=== PATIENT | female | born 1980 | race Asian ===

== ENCOUNTER 2020-08-11 22:47 | Outpatient (REF) | payer OTHER, SELFPAY ==
[2020-08-11 23:25] LABS: COVID-19 Test Negative (Negative); IDNOW Serial# 9DD0AD1C
== END 2020-08-11 22:48 | disposition home or self-care (01) ==
LOC: HO.EMPCOV 22:47
PROVIDERS: Visit Provider Internal Medicine
DX: Z20.822 Contact with and (suspected) exposure to COVID-19 (principal)
CPT/HCPCS: 36415; 87635

== ENCOUNTER 2025-03-07 13:41 | Outpatient (AMB) | payer OTHER, SELFPAY ==
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
[2025-03-07 13:57] VITALS: BP 108/82; PULSE 87; RESP 15; TEMP 36.6; O2SAT 96; BMI 23.1
== END 2025-03-07 14:45 | disposition home or self-care (01) ==
LOC: HO.HMCFM 13:42
PROVIDERS: PCP Nurse Practitioner Family; Visit Provider Nurse Practitioner Family
DX: Z00.00 Encounter for general adult medical examination without abnormal findings (principal); M89.8X1 Other specified disorders of bone, shoulder; L98.9 Disorder of the skin and subcutaneous tissue, unspecified; J30.2 Other seasonal allergic rhinitis; Z12.31 Encounter for screening mammogram for malignant neoplasm of breast

== ENCOUNTER → 2025-03-07 13:41 | Outpatient (BNVA) | payer OTHER, SELFPAY | PROVIDERS: PCP Nurse Practitioner Family; Visit Provider Nurse Practitioner Family | DX: Z00.00 Encounter for general adult medical examination without abnormal findings (principal); M25.551 Pain in right hip; M89.8X1 Other specified disorders of bone, shoulder; L98.9 Disorder of the skin and subcutaneous tissue, unspecified; H52.10 Myopia, unspecified eye; J30.2 Other seasonal allergic rhinitis; Z23 Encounter for immunization | CPT/HCPCS: 90471; 90715; 96127 ==

== ENCOUNTER 2025-03-08 08:25 | Outpatient (REF) | payer OTHER, SELFPAY ==
--- NOTE | ~2025-03-08 | XR_ITS ---
EXAMINATION: XR SCAPULA RIGHT HISTORY: M89.8X1 - Other specified disorders of bone, shoulder COMPARISON: There are no prior studies available for comparison. FINDINGS: Two views of the right scapula are submitted. Osseous mineralization is normal. There is no fracture or lytic lesion. The glenohumeral joint is maintained. XR/XR scapula RT IMPRESSION: Unremarkable examination of the right scapula. Electronically signed by: Gerard Cody MD 03/08/2025 09:10 AM EDT
[2025-03-08 08:39] LABS: MANUAL DIFF FLAG NO
--- OUTSIDE RECORDS SUMMARY | 2025-03-08 08:43 | XMS_ITS | Clinical Summary ---
Author Organization [address] [facility] Address [address] [place] [id number] Phone Care Team Providers Care Title Department Manager Name Role Phone Kuldeep Jim Primary Care Provider [phone] Encounters Date Type Department Care Team Description 01/01/2025 3:30 PM EDT Clinic Lab Collection Walk[facility]In [facility] - [address] [id number] Pre-employment drug screening (Primary Dx) from Last 3 Months Social History Tobacco Use Types Packs/Day Years Used Date Smoking Tobacco: Never Assessed Comments Unknown Sex and Gender Information Value Date Recorded Sex Assigned at Not on file Legal Sex Female 9:00 PM EST Gender Identity Not on file Sexual Orientation Not on file Plan of Treatment Health Maintenance Due Date Last Done Comments Breast Cancer Screening 1980 DTaP,Tdap,and Td Vaccines (1 - Tdap) 09/30/1998 Hepatitis B Vaccines (1 of 3 - 19+ 3-dose series) 09/30/1998 COVID-19 Vaccine ( season) 2024 05/10/2022, 07/05/2021, 08/09/2020, Additional history exists HPV Vaccines (3 - 3-dose SCDM series) 06/09/2024 01/30/2024, 12/08/2023 Depression Screening 07/28/2024 Colorectal Cancer Screening: Colonoscopy 01/01/2025 HIV Screening 01/01/2025 Hepatitis C Screening 01/01/2025 Social Influencers of Health Screening 01/01/2025 Influenza Vaccine (#1) 2025 , 05/10/2022, 04/27/2019 Cervical Cancer Screening: Pap Smear 12/07/2026 12/08/2023 HIB Vaccines Aged Out No longer eligi ble based on patient's age to complete this topic Hepatitis A Vaccines Aged Out No long er eligible based on patient's age to complete this topic IPV Vaccines Aged Out No longer eligi ble based on patient's age to complete this topic MMR Vaccines Aged Out No longer eligi ble based on patient's age to complete this topic Meningococcal ACWY Vaccine Aged Out N o longer eligible based on patient's age to complete this topic Meningococcal B Vaccine Aged Out No l onger eligible based on patient's age to complete this topic Pneumococcal Vaccine: Pediatrics (0 to 5 Years) and At-Risk Patients (6 to 49 Years) Aged Out No longer eligible based on patient's age to complete this topic RSV Immunization Patients Under 20 months Aged Out No longer eligible based on patient's age to complete this topic Varicella Vaccines Aged Out No longer eligible based on patient's age to complete this topic Procedures Procedure Name Priority Date/Time Associated Diagnosis Comments POC URINE DRUG SCREEN Routine 01/02/2025 4:18 PM EDT Pre-employment drug screening from Last 3 Months Results * POC Urine Drug Screen (01/02/2025 4:18 PM EDT) Amphetamine Screen, Ur POC Negative Negative Benzodiazepines, Ur POC Negative Negative Cocaine, Ur POC Negative Negative Methamphetamine Screen, Ur POC Negative Negative Opiate Scrn, Ur POC Negative Negative THC, Ur POC Negative Negative Temperature, Ur POC 94 Urine Urine specimen obtained by clean catch procedure / Unknown 01/02/2025 4:18 PM EDT Isaías Reyes MD POINT OF CARE TEST ENTER/EDIT OR DERABLES Final Result from Last 3 Months Care Teams Title Department Manager Relationship Specialty Start Date End Date Kuldeep Jim PA [address] [place] [id number] PCP - General Orthopaedics 01/01/25
--- OUTSIDE RECORDS SUMMARY | 2025-03-08 08:43 | XMS_ITS | Referral Summary ---
Author Organization [facility] Address [address] [place] [address] Care Team Providers Care Director Social Welfare Name Role Phone Mike Jara MD Primary Care Provider [phone] Allergies Active Allergy Reactions Criticality Noted Date Comments Shellfish Derived Hives High 12/08/2023 Tree Nuts Hives High 12/08/2023 Medications No known medications Immunizations Immunization Administration Dates Next Due Human Papillomavirus 9-Valent Vaccine 01/30/2024 ,12/08/2023 Social History Tobacco Use Types Packs/Day Years Used Date Smoking Tobacco: Never Smokeless Tobacco: Never Tobacco Cessation:Counseling Given: Not Answered Comments:: Alcohol Use Standard Drinks/Week Comments Not Currently 0 (1 standard drink = 0.6 oz pur e alcohol) Comments No Sex and Gender Information Value Date Recorded Sex Assigned at Female 12/01/2023 9:33 AM EDT Legal Sex Female 8:38 AM EDT Gender Identity Female 12/01/2023 9:33 AM EDT Sexual Orientation Straight 12/01/2023 9: 33 AM EDT Last Filed Vital Signs Vital Sign Reading Time Taken Comments Blood Pressure 96/64 12/08/2023 9:07 AM EDT Pulse - - Temperature - - Respiratory Rate - - Oxygen Saturation - - Inhaled Oxygen Concentration - - Weight 50.8 kg (112 lb) 12/08/2023 9:07 AM EDT Height 144.8 cm (4' 9 ) 04/24/2012 4:18 PM EDT Body Mass Index - - Plan of Treatment Not on file Procedures * Due to [place] O'ol Blue law, this organization might not be sharing negative HIV tests. Procedure Name Priority Date/Time Associated Diagnosis Comments PAP Routine 12/08/2023 10:29 AM EDT Cervical cancer screening from Last 3 Months or Most Recently Relevant to Health Maintenance Results * Due to [place] state law, this organization might not be sharing negative HIV tests. * Pap (12/08/2023 10:29 AM EDT) Specimen Adequacy Specimen processed and examined but unsatisfactory for evaluation of epithelial cell abnormalities because of scant cellularity [facility] MANUAL 4 11:37 AM EDT [facility] [place] [facility] ANATOMIC PATHOLOGY LABORATORY Pathologist Cytology Interpretation Unsatisfactory for Evaluation. Please see Specimen Adequacy. [facility] MANUAL 4 11:37 AM EDT [facility] [place] [facility] PATHOLOGY LABORATORY at 1137 EDT Clearing Tub Worker Statement This Pap test could not be examined by the [employer] System, [employer], [place], [place], and required a full manual screening. This Pap test was examined in accordance with the [facility] Cytopathology Laboratory written policy, which incorporates all CLIA mandates. Screening guidelines can be found in Am J Clin Pathol 2012;137:516-542 . We endorse the practice guidelines developed by ASCCP and published in the Journal Lower Genital Tract Disease 17(5):S1-S27 (2013). This report was delayed because the sample required reprocessing. [facility] MANUAL 4 11:37 AM EDT [facility] [employer] [facility] PATHOLOGY LABORATORY Clinical History Screening [facility] MANUAL 11:37 AM EDT [facility] [place] [facility] ANATOMIC PATHOLOGY LABORATORY Resulting Agency Case was signed out at [facility], Department of Pathology, [employer] 3 CLIA [id number] [facility] MANUAL 4 11:37 AM EDT [facility] [place] [facility] ANATOMIC PATHOLOGY LABORATORY Report Header Gynecologic Cytology Report Case: [id number] Authorizing Provider: Jade Yoder MD Collected: 12/08/2023 1029 Ordering Location: [facility] Received: 12/08/2023 1335 [facility] Obstetrics and Gynecology First Screen: Ugo Lang Specimen: ThinPrep Pap Test, Cervix/Endocervi x 11:37 AM EDT [facility] [place] [facility] PATHOLOGY LABORATORY Brushing Cervix uteri structure / Unknown Non-Blood Collection / Unknown 12/08/2023 10:29 AM EDT 12/08/2023 1:35 PM EDT us Jade Yoder MD LAB PATHOLOGY/CYTOLOGY ORDER DANIEL Final Result [facility] [place] [facility] [address] [place] [address], from Last 3 Months or Most Recently Relevant to Health Maintenance Care Teams Director Social Welfare Relationship Specialty Start Date End Date Mike Jara MD PCP - General 02/13/17
[2025-03-08 09:09] LABS: Hematocrit 35.3 % (37.0-47.0); Hemoglobin 11.8 g/dl (12.0-16.0); Imm Gran Abs Auto 0.02 X10*3/uL (0.00-0.03); Imm Gran Pct Auto 0.3 % (0.0-0.4); Lymphocytes Absolute Auto 1.8 X10*3/uL (1.2-4.9); Mean Corpuscular HGB Conc 33.4 g/dl (31.0-35.0); Mean Corpuscular Hemoglobin 30.6 pg (27.0-33.0); Mean Corpuscular Volume 91.7 fL (80.0-98.0); NRBC Abs Auto 0.000 X10*3/uL (0.0-0.012); NRBC Pct Auto 0.0 /100WBC (0.0-0.2); Platelet Count 258 X10*3/uL (160-400); Red Blood Count 3.85 X10*6/uL (4.20-5.50); White Blood Count 7.0 X10*3/uL (4.8-10.8)
[2025-03-08 09:36] LABS: Appearance Urine Clear; Glucose Urine UA Negative (Negative); PH 6.0 (5.0-9.0); Specific Gravity - Urine 1.015 (1.005-1.025); UMIC TRIGGER UACC YES
[2025-03-08 10:43] LABS: Alanine Aminotransferase 11 U/L (0-31); Albumin Level 4.1 g/dL (3.5-5.0); Alkaline Phosphatase 47 U/L (39-117); Anion Gap 11 (12-20); Aspartate Amino Transferase 22 U/L (5-31); Blood Urea Nitrogen 22 mg/dL (9-16); Calcium 8.4 mg/dL (8.4-10.2); Carbon Dioxide 27 mmol/L (22-29); Chloride 105 mmol/L (96-108); Cholesterol 144 mg/dL (<200); Estimated Glomerular Filt Rate > 60; HDL Cholesterol 54 mg/dL (>40); Potassium 3.8 mmol/L (3.3-5.1); Sodium 139 mmol/L (135-145); Total Protein 6.9 g/dL (6.5-8.0); Triglycerides 86 mg/dL (<150)
== END 2025-03-08 08:26 | disposition home or self-care (01) ==
LOC: HO.LAB 08:25
PROVIDERS: Visit Provider Nurse Practitioner Family
DX: Z00.00 Encounter for general adult medical examination without abnormal findings (principal); M89.8X1 Other specified disorders of bone, shoulder; Z13.6 Encounter for screening for cardiovascular disorders
CPT/HCPCS: 36415; 73010; 80053; 80061; 81001; 82043; 82306; 82570; 84443; 85025

== ENCOUNTER → 2025-03-08 08:45 | Outpatient (BNV) | payer OTHER, SELFPAY | PROVIDERS: Visit Provider Radiology Diagnostic Radiology | DX: M25.511 Pain in right shoulder (principal) | CPT/HCPCS: 73010 ==

== ENCOUNTER 2025-04-29 14:02 | Outpatient (AMB) | payer OTHER, SELFPAY ==
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
--- OUTSIDE RECORDS SUMMARY | 2025-04-29 14:15 | XMS_ITS | Clinical Summary ---
Author Organization [facility] Address [address] [place] [address] Care Team Providers Care Shot Lighter Name Role Phone Mike Jara MD Primary Care Provider [phone] Allergies Active Allergy Reactions Criticality Noted Date Comments Shellfish Derived Hives High 12/08/2023 Tree Nuts Hives High 12/08/2023 Medications No known medications Immunizations Immunization Administration Dates Next Due Human Papillomavirus 9-Valent Vaccine 01/30/2024 ,12/08/2023 Family History Medical History Relation Name Comments Breast cancer Mother's Sister Liver cancer Paternal Grandfather Relation Name Status Comments Mother's Sister Alive Paternal Grandfather Social History Tobacco Use Types Packs/Day Years [...] Mass Index - - Plan of Treatment Health Maintenance Due Date Last Done Comments Cologuard 1979 Colon Cancer Screening 1979 Colonoscopy 1979 FOBT / Fit Test 1979 HIV Screening 1979 HPV and Pap Smear 1979 Hepatitis C Screening 1979 Sigmoidoscopy 1979 Varicella Vaccines (1 of 2 - 13+ 2-dose series) 09/30/1992 Hepatitis B Vaccines (1 of 3 - 19+ 3-dose series) 09/30/1998 DTaP,Tdap,and Td Vaccines (1 - Tdap) 09/30/2001 Mammogram 2019 Alcohol/Substance Use Screening 07/28/2024 Depression Screening and Follow-Up 07/28/2024 Social Drivers of Health Annual Screening 07/28/2024 COVID-19 Vaccine (2024- season) 2025 05/10/2022, 07/05/2021, 08/09/2020, Additional history exists Influenza Vaccine (#1) 2025 3, 05/10/2022, 04/27/2019 Cervical Cancer Screening 12/07/2026 Pap Smear 12/07/2026 12/08/2023 RSV Vaccine (60+ years old and patients) (1 - 1-dose 75+ series) 09/30/2054 Pneumococcal Vaccine: Pediatric (0-5 Years) and At-Risk Patients (6-50 Years) Aged Out No longer eligible based on patient's age to complete this topic Procedures * Due to [place] panpan law, this organization might not be sharing negative HIV tests. Procedure Name Priority Date/Time Associated Diagnosis Comments PAP Routine 12/08/2023 10:29 AM EDT Cervical cancer screening from Last 3 Months or Most Recently Relevant to Health Maintenance Results * Due to [place] panpan law, this organization might not be sharing negative HIV tests. * Pap (12/08/2023 10:29 AM EDT) Specimen Adequacy Specimen processed and examined but unsatisfactory for evaluation of epithelial cell abnormalities because of scant cellularity [employer] MANUAL 4 11:37 AM EDT Room [facility] Pathologist Cytology Interpretation Unsatisfactory for Evaluation. Please see Specimen Adequacy. [facility] MANUAL 4 11:37 AM EDT Room [facility] at 1137 EDT Service Car Operator Statement This Pap test could not be examined by the [employer] System, [employer], [place], [place], and required a full manual screening. This Pap test was examined in accordance with the [facility] Cytopathology Laboratory written policy, which incorporates all CLIA mandates. Screening guidelines can be found in Am J Clin Pathol 2012;137:516-542 . We endorse the practice guidelines developed by ASCCP and published in the Journal Lower Genital Tract Disease 17(5):S1-S27 (2013). This report was delayed because the sample required reprocessing. [facility] MANUAL 4 11:37 AM EDT [facility] LABORAT[facility] Clinical History Screening [facility] MANUAL 4 11:37 AM EDT Room [facility] ANATOMIC PATHOLOGY LABORATORY Resulting Agency Case was signed out at [facility], Department of Pathology, [employer] 3 CLIA [id number] [facility] MANUAL 4 11:37 AM EDT [facility] Report Header Gynecologic Cytology Report Case: [id number] Authorizing Provider: Jade Yoder MD Collected: 12/08/2023 1029 Ordering Location: [facility] Received: 12/08/[address] [place] [address] Obstetrics and Gynecology First Screen: Ugo Lang Specimen: ThinPrep Pap Test, Cervix/Endocervi x 11:37 AM EDT [facility] Brushing Cervix uteri structure / Unknown Non-Blood Collection / Unknown 12/08/2023 10:29 AM EDT 12/08/2023 1:35 PM EDT us Jade Yoder MD LAB PATHOLOGY/CYTOLOGY ORDER DANIEL Final Result [facility] [address] [place] [address], from Last 3 Months or Most Recently Relevant to Health Maintenance Care Teams Shot Lighter Relationship Specialty Start Date End Date Mike Jara MD [facility] - General 02/13/17
--- OUTSIDE RECORDS SUMMARY | 2025-04-29 14:15 | XMS_ITS | Clinical Summary ---
Author Organization [place] [address] [address] [facility] Address [address] [place] [phone] Phone Care Team Providers Care Home Paraprofessional Name Role Phone Kuldeep Jim Primary Care Provider [phone] Social History Tobacco Use Types Packs/Day Years [...] of 3 - 19+ 3-dose series) 09/30/1998 HPV Vaccines (3 - 3-dose SCDM series) 06/09/2024 01/30/2024, 12/08/2023 Depression Screening 07/28/2024 Colorectal Cancer Screening: Colonoscopy 01/01/2025 HIV Screening 01/01/2025 Hepatitis C Screening 01/01/2025 Social Influencers of Health Screening 01/01/2025 COVID-19 Vaccine ( season) 2025 05/10/2022, 07/05/2021, 08/09/2020, Additional history exists Influenza Vaccine (#1) 2025 , 05/10/2022, 04/27/2019 Cervical Cancer Screening: Pap Smear 12/07/2026 12/08/2023 RSV Immunization Adult Patients (1 - 1-dose 75+ series) 09/30/2054 HIB Vaccines Aged Out No longer eligi [...] on patient's age to complete this topic Care Teams Home Paraprofessional Relationship Specialty Start Date End Date Kuldeep Jim PA [address] [place], [place] [address]kay[place] [id number] PCP - General Orthopaedics 01/01/25
== END 2025-04-29 15:58 | disposition home or self-care (01) ==
LOC: HO.HMCFM 14:02
PROVIDERS: PCP Nurse Practitioner Family; Visit Provider Nurse Practitioner Family
DX: E55.9 Vitamin D deficiency, unspecified (principal); D64.9 Anemia, unspecified

== ENCOUNTER 2025-05-04 08:19 | Outpatient (REF) | payer OTHER, SELFPAY | END 2025-05-04 08:20 | disposition home or self-care (01) | LOC: HO.MAMMO 08:19 | PROVIDERS: PCP Nurse Practitioner Family; Visit Provider Nurse Practitioner Family | DX: Z12.31 Encounter for screening mammogram for malignant neoplasm of breast (principal) | CPT/HCPCS: 77063; 77067 ==

== ENCOUNTER → 2025-05-04 08:30 | Outpatient (BNV) | payer OTHER, SELFPAY | PROVIDERS: PCP Nurse Practitioner Family; Visit Provider Internal Medicine | DX: Z12.31 Encounter for screening mammogram for malignant neoplasm of breast (principal) | CPT/HCPCS: 77063; 77067 ==

== ENCOUNTER → 2025-06-20 15:00 | Outpatient (BNV) | payer OTHER, SELFPAY | PROVIDERS: PCP Nurse Practitioner Family; Visit Provider Radiology Body Imaging | DX: N63.13 Unspecified lump in the right breast, lower outer quadrant (principal) | CPT/HCPCS: 76642; 77061; 77065 ==

== ENCOUNTER 2025-06-20 15:02 | Outpatient (REF) | payer OTHER, SELFPAY ==
--- NOTE | ~2025-06-20 | MM_ITS ---
EXAMINATION(S): 1. MM DIAGNOSTIC DIGITAL BREAST TOMOSYNTHESIS, RIGHT 2. TARGETED ULTRASOUND OF THE RIGHT BREAST CLINICAL INFORMATION: Callback from baseline screening for multiple right breast asymmetries: -Lateral breast posterior depth on the CC view -Superior breast posterior depth on the MLO view -Inferior breast posterior depth on the MLO view COMPARISON: May 04, 2025 TECHNIQUE: Digital breast tomosynthesis is performed in full-field ML 90 degrees and XCCL views along with computer-aided detection (CAD). Synthesized 2D images are generated from the tomosynthesis. Spot compression tomosynthesis were obtained. FINDINGS: BREAST COMPOSITION: The breasts are heterogeneously dense, which may obscure small masses. RIGHT BREAST: The asymmetries in the upper breast and lower breast on the MLO view and in the lateral breast on the CC view are pliable with spot compression. Targeted ultrasound of the right breast was performed at the location of the mammographic finding. The survey shows the following: -3 adjacent cysts or cyst with septations at 2 o'clock position 3 cm from the nipple with overall measurements of 0.8 x 0.5 x 0.8 cm. Possible focal vascularity is seen in one of the septations or between the cysts. -Solid mass at 8 o'clock position 3 cm from the nipple measuring 0.8 x 0.6 x 0.4 cm. No abnormal vascularity demonstrated with color Doppler evaluation. MM/MM tomosynthesis added views R IMPRESSION: RIGHT BREAST: 1. Adjacent cysts or cyst with septations at 2 o'clock position 3 cm from the nipple, with possible focal vascularity. Probably benign. A 6-month follow-up ultrasound is recommended. 2. Solid mass at 8 o'clock position 3 cm from the nipple measuring 0.8 cm. Probably benign. A 6-month follow-up ultrasound is recommended. ASSESSMENT: BI-RADS: Category 3: Probably benign RECOMMENDATION: 6 Month F/U Results were provided to the patient at time of visit by the technologist. This patient's information was entered into a reminder system with a target due date for their next mammogram. Electronically signed by: Marino Tran MD 06/20/2025 04:03 PM [facility] [place]
--- OUTSIDE RECORDS SUMMARY | 2025-06-20 19:49 | XMS_ITS | Data Portability ---
Author Organization [facility] Telemedicine Address [address] [place] [address] Assessment No assessment recorded. Plan of Treatment Reminders Order Date Submit Date Provider Last Modified By Organization Details Last Modified Time Details Appointments None recorded. Lab CBC w/ auto diff 2023 024 [facility], [address] [place] [address], [address], 4 18:06:18 lipid panel, serum 2023 024 [facility], [address] [place] [address], [address], 4 18:06:20 CMP, serum or plasma 2023 024 [facility], [address] [place] [address], [address], 4 18:06:19 urinalysis, dipstick 2023 024 [facility], [address] [place] [address], [address], 4 05:01:01 TSH, ultra-sensi tive, serum 2023 024 [facility], [address] [place] [address], [address], 4 18:06:21 vitamin D, 25-hydroxy, total, serum 2023 024 [facility], [address] [place] [address], [address], 4 18:06:21 Mycobacteri um tuberculosi s stimulated gamma interferon, qual, blood 2021 [facility], [address] [place] [address], [place] [address], [place], [address], 2 10:06:07 CBC w/ auto diff 2021 022 [facility], [address] [place] [address], [place], [address], 06:07:24 lipid panel, serum 2021 [facility], [address] [place] [address], [place], [address], 06:07:25 CMP, serum or plasma 2021 [facility], [address] [place] [address], [place], [address], 06:07:24 urinalysis, dipstick 2021 [facility], [address] [place] [address], [place], [address], 06:07:25 TSH, ultra-sensi tive, serum 2021 [facility], [address] [place] [address], [place], [address], 06:07:26 Referral None recorded. Procedures cervical cancer screening (PROC) 2023 024 FARNAZ Not available 5 05:01:26 cervical cancer screening (PROC) 2021 022 F[facility]NAZ Not available 3 05:01:14 Surgeries None recorded. Imaging MAMMO, screening, digital, bilateral 2023 024 [facility] (Imaging Scheduling), [address] [place] [address], Radiology [facility], [place], [address], 4 11:03:54 MAMMO, screening, digital, bilateral 2021 022 [facility]iology (Imaging Scheduling), [address] [facility], [address], [place], [address], 3 05:00:51 Medication Orders None recorded. Patient TargetsNo targets recorded. Patient Instructions Encounter Date Encounter Id Patient Instructions Last Modified By Organization Details Last Modified Time 05/08/2022 [id number] mammogram: about this test [email or web address] Not available 05/08/2022 14:59:56 Well Visit, Ages 18 to 65: Care Instructions [email or web address] Not available 05/08/2022 14:59:56 08/18/2023 [id number] mammogram: about this test [email or web address] Not available 08/18/2023 09:16:53 Well Visit, Ages 18 to 65: Care Instructions [email or web address] Not available 08/18/2023 09:16:53 Reason for Referral None Reported. Results Created Date Observation Date Name Description Value Unit Range Abnormal Flag Note LastModifiedBy Organization Detail LastModifiedTime 06/06/2006/06/2022 imagi ng/di kenanos tic resul t No observ ation record ed. [address], [address], 06/06/2022 15:34:37 08/27/19 24 08/26/2023 MAMMO , scree laura, digit al, bilat eral No observ ation record ed. [facility] Medical Records [address] [place] [address], [address], 08/27/2023 11:03:54 Result Notes None recorded. Problems Name Problem SNOMED Code Status Onset Date Resolution Date Notes Provider Name and Address Organization Details Recorded Time Adult health examination Active 2021 LUPE Yousif [facility] [place], [address], [facility] 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 4 09:13:52 Vitamin D deficiency 34806710 Active 2023 LUPE Yousif [address] [place], [address], [facility] 4 17:30:32 Problem Notes None recorded. Medical Equipment None Reported. Allergies No known drug allergies Medications Name Sig Start Date Stop Date Status Note LastModified by Organization Details LastModified Time metronidazole 0.75 % (37.5 mg/5 gram) vaginal gel active Not Available Not Available Not Available ergocalciferol (vitamin D2) 1,250 mcg (50,000 unit) capsule Take 1 capsule every week by oral route. active Not Available Not Available No t Available Vitals Date Recorded Body weight Body mass index (BMI) Body height Heart rate Body temperature Oxygen saturation Systolic And Diastolic Provider Name and Address Organization Details Last Updated DateTime 4 19506.1 6 g 20.8 kg/m2 154.94 cm 68 /min 98.1 [degF] 98 % 121/69 mm[Hg] Georgia Contreras [facility] 4 08:47:23 Date Recorded Body weight Body mass index (BMI) Body height Heart rate Body temperature Oxygen saturation Systolic And Diastolic Provider Name and Address Organization Details Last Updated DateTime 2 39155.5 7 g 23.6 kg/m2 144.78 cm 60 /min 98.4 [degF] 98 % 117/67 mm[Hg] Georgia Ben [facility] 2 14:50:29 Social History None recorded. Functional Status None recorded. Mental Status None recorded. Family History Nothing Reported. Medical History No medical history recorded. Gynecological HistoryNo gynecological history recorded. Obstetrics History GPAL:G 0 P 0 0 0 0 Immunizations Vaccine Type Date Status Note Provider Nam e and Address Organization Details Recorded Time COVID-19, mRNA, LNP-S, PF, 30 mcg/0.3 mL dose 0 completed [facility] 05/08/2022 10:00:34 COVID-19, mRNA, LNP-S, PF, 30 mcg/0.3 mL dose 1 completed Jacob Marquez sarina [facility] Kait [facility] 05/08/2022 10:00:42 COVID-19, mRNA, LNP-S, PF, 30 mcg/0.3 mL dose 1 completed Jacob Marquez sarina [facility] Kait [facility] 05/08/2022 10:00:48 COVID-19, mRNA, LNP-S, PF, 30 mcg/0.3 mL dose 2 completed mendez pisanohilario branch [facility] Kait [facility] 05/15/2022 11:18:37 Influenza, split virus, quadrivalent, preservative 2 completed mendez branch [facility] Kait [facility] 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 Localized scleroderma 20 7843571 L94.0 derm referral , on back and neck [id number] MD BEN Gaffney AND [address] [address] 05/30/2022 10:26:47 05/30/2022 10:29:16 Tuberculosis screening 454348685 Z11.1 asymptomat ic, will check TB gold [id number] MD BEN Gaffney [address] [address] 08/18/2023 08:32:53 08/18/2023 09:18:08 Adult health examination 431413482 Z00.00 Nl examneed flu shot ,continue exercise , recommend dailyrouti ne blood work Screening for malignant neoplasm of breast 025704407 Z12.31 mammogram referral Screening for malignant neoplasm of cervix 000916285 Z12.4 information clerk cashier referral Health Concerns Section Related Observation LastModified by Organization Detai ls LastModified Time None Recorded Concern Status LastModified by Organization Details LastModified Time None Recorded Advance Directives Directive None Recorded Payers Insurance Date Sequence Insurance Name Policy Number Policy Lr Covered Member ID Lr Member ID Guarantor Name 08/17/2024 1 [facility] Nicholasanitra Ashley Domingo [id number] Nicholasanitra Ashley Domingo 11/19/2024 1 [facility] [id number] Nicholasanitra Ashley Domingo [id number] Prachi Domingo Notes Date Note Type Note Provider Name and Address Organization Details Recorded Time 05/08/2022 text/html Annual WellnessReported by PatientSocial/Behavio ral HistoryFor diet and nutrition, patient reportshealthy diet. For fracture risk, patient reportsno history of fractures,no recent explained fracture,no sudden unexplained fractures, andno previous musculoskeletal injuries. For physical activity, patient reportsexercises on a regular basis,recent increase in physical activity, andgood physical condition. For additional lifestyle factors, patient reportsno tobacco use,no alcohol intake, andstopped drinking alcohol.Mental Status:For depression risk, patient reportsnever feels sad, empty, or tearful,no loss of interest in activities,no significant changes in weight,no sleep disturbances or insomnia,no agitation,no loss of energy,no feelings of worthlessness or guilt,no thoughts of suicide,no history of depression, andno history of mood disorders.Functional AbilityFor hearing, patient reportsno loss of hearing. For vision, patient reportsno vision problems. LUPE Yousif [address], [place], [address], [facility] 05/09/2022 07:23:52 05/30/2022 text/html ROS as noted in the HPI asks to check Tb for work/school denies chronic cough , sob, night sweating or wt loss none smoker no TB test done recently Mike Contreras MD [address] [place], [address], [facility] 05/30/2022 17:30:59 08/18/2023 text/html Annual WellnessReported by PatientSocial/Behavio ral HistoryFor diet and nutrition, patient reportshealthy diet. For fracture risk, patient reportsno history of fractures,no recent explained fracture,no sudden unexplained fractures, andno previous musculoskeletal injuries. For physical activity, patient reportsexercises on a regular basis,recent increase in physical activity, andgood physical condition. For additional lifestyle factors, patient reportsno tobacco use,no alcohol intake, andstopped drinking alcohol.Mental Status:For depression risk, patient reportsnever feels sad, empty, or tearful,no loss of interest in activities,no significant changes in weight,no sleep disturbances or insomnia,no agitation,no loss of energy,no feelings of worthlessness or guilt,no thoughts of suicide,no history of depression, andno history of mood disorders.Functional AbilityFor hearing, patient reportsno loss of hearing. For vision, patient reportsno vision problems. LUPE Yousif [address] [place], [address], [facility] 08/18/2023 09:17:54 08/17/2024 text/html Annual WellnessReported by PatientSocial/Behavio ral HistoryFor diet and nutrition, patient reportshealthy diet. For fracture risk, patient reportsno history of fractures,no recent explained fracture,no sudden unexplained fractures, andno previous musculoskeletal injuries. For physical activity, patient reportsexercises on a regular basis,recent increase in physical activity, andgood physical condition. For additional lifestyle factors, patient reportsno tobacco use,no alcohol intake, andstopped drinking alcohol.Mental Status:For depression risk, patient reportsnever feels sad, empty, or tearful,no loss of interest in activities,no significant changes in weight,no sleep disturbances or insomnia,no agitation,no loss of energy,no feelings of worthlessness or guilt,no thoughts of suicide,no history of depression, andno history of mood disorders.Functional AbilityFor hearing, patient reportsno loss of hearing. For vision, patient reportsno vision problems. Not Available Not Available Not Available OBGyn Episode No OBEpisode recorded.
--- OUTSIDE RECORDS SUMMARY | 2025-06-20 19:49 | XMS_ITS | Clinical Summary ---
Author Organization [place] [address] [facility] Address [address] [place] [address] Phone Care Team Providers Care Exhaust Worker Name Role Phone Kuldeep Jim Primary Care Provider [phone] Social History Tobacco Use Types Packs/Day Years Used Date Smoking Tobacco: Never Assessed Comments Unknown Sex and Gender Information Value Date Recorded Sex Assigned at Not on file Legal Sex Female 9:00 PM EST Gender Identity Not on file Sexual Orientation Not on file Plan of Treatment Health Maintenance Due Date Last Done Comments Breast Cancer Screening 1979 Colorectal Cancer Screening: Colonoscopy 1979 DTaP,Tdap,and Td Vaccines (1 - Tdap) 09/30/1998 Hepatitis B Vaccines (1 of 3 - 19+ 3-dose series) 09/30/1998 HPV Vaccines (3 - 3-dose SCDM series) 06/09/2024 01/30/2024, 12/08/2023 Depression Screening 07/28/2024 HIV Screening 01/01/2025 Hepatitis C Screening 01/01/2025 [...] age to complete this topic Care Teams Exhaust Worker Relationship Specialty Start Date End Date Kuldeep Jim PA [address] [place] [address] [place] [address] PCP - General Orthopaedics 01/01/25
--- OUTSIDE RECORDS SUMMARY | 2025-06-20 19:49 | XMS_ITS | Clinical Summary ---
Author Organization [facility] Address [address] [place] [address] Care Team Providers Care Senior Resident Care Director Name Role Phone Mike Jara MD Primary Care Provider [phone] Allergies Active Allergy Reactions Criticality Noted Date [...] Social Drivers of Health Annual Screening 07/28/2024 Influenza Vaccine (#1) 2025 3, 05/10/2022, 04/27/2019 COVID-19 Vaccine (2024- season) 2025 05/10/2022, 07/05/2021, 08/09/2020, Additional history exists Cervical Cancer Screening 12/07/2026 Pap Smear 12/07/2026 12/08/2023 Pneumococcal Vaccine: Pediatric (0-5 Years) and At-Risk Patients (6-50 Years) Aged Out No longer eligible based on patient's age to complete this topic Procedures * Due to [facility] law, this organization might not be sharing negative HIV tests. Procedure Name Priority Date/Time Associated Diagnosis Comments PAP Routine 12/08/2023 10:29 AM EDT Cervical cancer screening from Last 3 Months or Most Recently Relevant to Health Maintenance Results * Due to [facility] law, this organization might not be sharing negative HIV tests. * Pap (12/08/2023 10:29 AM EDT) Specimen Adequacy Specimen processed and examined but unsatisfactory for evaluation of epithelial cell abnormalities because of scant cellularity [facility] 4 11:37 AM EDT [facility] Pathologist Cytology Interpretation Unsatisfactory for Evaluation. Please see Specimen Adequacy. [facility] 4 11:37 AM EDT [facility] at 1137 EDT Division Commander Statement This Pap test could not be examined by the [facility], [email or web address], [place], [place], and required a full manual screening. This Pap test was examined in accordance with the [facility] Cytopathology Laboratory written policy, which incorporates all CLIA mandates. Screening guidelines can be found in Am J Clin Pathol 2012;137:516-542 . We endorse the practice guidelines developed by [facility] and published in the Journal Lower Genital Tract Disease 17(5):S1-S27 (2013). This report was delayed because the sample required reprocessing. [facility] MANUAL 4 11:37 AM EDT [facility] Clinical History Screening [facility] MANUAL 4 11:37 AM EDT [facility] Resulting Agency Case was signed out at [facility], Department of Pathology, [employer] 3 CLIA [id number] [facility] MANUAL 4 11:37 AM EDT [facility] Report Header Gynecologic Cytology Report Case: [id number] Authorizing Provider: Jade Yoder MD Collected: 12/08/2023 1029 Ordering Location: [facility] Received: 12/08/2023 1335 [facility] Obstetrics and Gynecology First Screen: Ugo Lang Specimen: ThinPrep Pap Test, Cervix/Endocervi x 11:37 AM EDT [facility] Brushing Cervix uteri structure / Unknown Non-Blood Collection / Unknown 12/08/2023 10:29 AM EDT 12/08/2023 1:35 PM EDT us Jade Yoder MD LAB PATHOLOGY/CYTOLOGY ORDER DANIEL Final Result [facility] [place] [address], from Last 3 Months or Most Recently Relevant to Health Maintenance Care Teams Senior Resident Care Director Relationship Specialty Start Date End Date Mike Jara MD PCP - General 02/13/17
== END 2025-06-20 15:03 | disposition home or self-care (01) ==
LOC: HO.MAMMO 15:02
PROVIDERS: PCP Nurse Practitioner Family; Visit Provider Nurse Practitioner Family
DX: N64.89 Other specified disorders of breast (principal)
CPT/HCPCS: 76642; 77061; 77065

== ENCOUNTER 2025-07-18 13:52 | Outpatient (REF) | payer OTHER, SELFPAY ==
[2025-07-18 22:37] LABS: Bacterial Vaginosis PCR NEGATIVE (Negative); Candida Group PCR NOT DETECTED (Not Detect); Candida glab krusei PCR DETECTED (Not Detect); Trichomonas vaginalis PCR DETECTED (Not Detect)
[2025-07-18 23:09] LABS: CT PCR NOT DETECTED (Not Detect.); NG PCR NOT DETECTED (Not Detect.)
== END 2025-07-18 13:53 | disposition home or self-care (01) ==
LOC: HO.LNP 13:52
PROVIDERS: Visit Provider Advanced Practice Midwife
DX: Z01.419 Encounter for gynecological examination (general) (routine) without abnormal findings (principal); Z20.2 Contact with and (suspected) exposure to infections with a predominantly sexual mode of transmission; Z78.9 Other specified health status
CPT/HCPCS: 81515; 87491; 87591; 87626; 88175

== ENCOUNTER 2025-07-18 13:52 | Outpatient (AMB) | payer OTHER, SELFPAY ==
[2025-07-18 13:59] VITALS: BP 112/76; BMI 24.5
--- NOTE | 2025-07-18 13:59 | MHC.OFFVIS ---
Vital Signs 07/18/25 13:59 Height 4 ft 10 in Weight 117 lb 2 oz BMI 24.5 BP 112/76 Blood Pressure Location Rt brachial Position Sitting Intake Visit Reasons: New patient annual Allergies naproxen Allergy (Severe, Verified 07/18/25 14:00) Gastrointestinal Upset Peanut Butter Allergy (Verified 07/18/25 14:00) Rash sesame seed Allergy (Verified 07/18/25 14:00) Rash shellfish derived Allergy (Verified 07/18/25 14:00) Rash soy Allergy (Verified 07/18/25 14:00) Rash walnut Allergy (Verified 07/18/25 14:00) GI upset Almonds Allergy (Uncoded 07/18/25 14:00) Rash Medication List - Last Reconciled 07/18/25 by Cinhtya Dye CNM cholecalciferol (vitamin D3) 25 mcg PO DAILY 90 days cyclobenzaprine 5 mg PO BID PRN fluticasone propionate 50 mcg/actuation (Flonase Allergy Relief) 2 sprays intranasal DAILY Is last menstrual period known: Yes Last menstrual period: 07/04/25 HPI HPI New patient annual: Details: Patient is here for new breakfast supervisor visit. She has not had regular breakfast supervisor care anywhere as she was in grad school and did not have good insurance she did have some exam wants in [place] a couple of years ago wears she thinks something was either tested or taken off but she is not sure what it was. She has sometimes sexually active but not very much could she does not want to be and she does use condoms when she does have sex. She gets regular periods and her last period was on July 04. 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 She got the 1st 2 series of the Gardasil vaccine when she moved here from [place] but she thinks the last 1 she got was a couple of years ago. She turns 45 in September. She tries to be healthy she has noticed that she has gained a little bit of weight in the last year so and it maybe since she started working. She normally used to go to the gym but has less time to do so now that she is working she has had a discomfort in her hip when she does run. She has had a couple of mammograms and she says she had a ultrasound of her breast also that was recommended for 6 months. She only recently encountered her new nurse practitioner but he has left the practice so she needs to pick a new 1. 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 She said she got something in [place] to help the freckles fade. General: healthy appearing, comfortable, no acute distress, well developed and alert Nutritional Appearance: average body habitus Orientation/consciousness: patient oriented x3 Limitations: no limitations HEENT Head: Yes normocephalic Neck Neck: Yes normal visual inspection Chest Chest palpation & inspection: normal inspection of the chest Breast/axilla inspection: normal inspection of the breasts and normal inspection of the axillae Breast/axilla palpation: normal palpation of the breasts and normal palpation of the axillae Resp Effort & Inspection: normal respiratory effort GI Inspection: Yes normal to inspection, No Abdominal wall edema and No distended Palpation (GI): Soft to palpation and nontender Other: Normal external exam vagina pink and moist with very normal appearing whitish discharge consistent with luteal phase nulliparous cervix pink smooth healthy appearing it was friable with Pap at os. Uterus small midposition mobile nontender bladder full adnexa nontender very good muscle tone with Kegel. General: Yes bladder normal to palpation External Female Exam: normal external appearance and normal appearance of the urethra Speculum Exam - Vagina: normal appearance of the vagina, normal palpation and normal vaginal discharge Speculum Exam - Cervix: normal appearance of the cervix, normal palpation and nontender Bimanual exam- vagina & uterus: normal bimanual exam, normal palpation, uterine size normal, bladder normal to palpation, consistency normal, normal palpation, uterine mobility normal, uterine shape normal, No Cervical tenderness present, non-tender and no cervical motion tenderness Bimanual Exam- Adnexa, other: normal adnexae, no masses, normal and No adnexal tenderness Neuro General: patient oriented x3 Assessment & Plan Assessment & Plan (1) Pap smear for cervical cancer screening: Code(s): Z12.4 - Encounter for screening for malignant neoplasm of cervix Category: Medical (2) Breast cancer screening by mammogram: Code(s): Z12.31 - Encounter for screening mammogram for malignant neoplasm of breast Category: Medical (3) Well woman exam with routine gynecological exam: Code(s): Z01.419 - Encounter for gynecological examination (general) (routine) without abnormal findings Category: Medical (4) Uses condoms as primary control method: Comment: And abstinence..., plus is aware of her cycles. Code(s): Z78.9 - Other specified health status Category: Social Hx Plan -----Discussed in this visit the following: healthy balanced diet, regular and consistent exercise, getting recommended health screens, doing the best she can for her particular health concerns, kegel exercises, pap smear screening and followup recommendations, mammography screening and SBE, normal changes in cycles in her life stage--- . She is getting her mammograms and mammogram follow-up via primary care and the [facility]. I gave her list of primary care provider's so that she can choose a new 1 It has been a couple of years since her 1st and 2nd Gardasil shots so she might need to check with her insurance which is the same as the hospital insurance to see if it will be given here in the office and if it will be she can get it but she should get it before she turns 45 in September if the insurance does not covered being given in the office then she should check to see if she can get it at [facility].. She will continue with abstinence and condoms for control Pap smear was done as well as testing for gonorrhea chlamydia trichomoniasis Gardnerella and Candace. Any concerns about her moles and freckles she will discuss with her primary. RTC 1 year. Orders: Orders Bacterial Vaginosis Panel Today Z01.419 - Encounter for gynecological examination (general) (routine) without abnormal findings Pap Smear Today Z01.419 - Encounter for gynecological examination (general) (routine) without abnormal findings CT NG by PCR Vag/Cerv Today Z01.419 - Encounter for gynecological examination (general) (routine) without abnormal findings Coding Level of Care Code New Pt Prev Care 40-64y(20353) Diagnoses Pap smear for cervical cancer screening Z12.4 Breast cancer screening by mammogram Z12.31 Well woman exam with routine gynecological exam Z01.419 Uses condoms as primary control method Z78.9
--- OUTSIDE RECORDS SUMMARY | 2025-07-18 17:22 | XMS_ITS | Clinical Summary ---
Author Organization [place] [address] [address] includes the [facility] Address [address] [place] [id number] Phone Care Team Providers Care Site Medical Director Name Role Phone Kuldeep Jim Primary Care Provider [phone] Social History Tobacco Use Types Packs/Day Years [...] age to complete this topic Care Teams Site Medical Director Relationship Specialty Start Date End Date Kuldeep Jim PA [address] [place] [address] [place] [id number] PCP - General Orthopaedics 01/01/25
--- OUTSIDE RECORDS SUMMARY | 2025-07-18 17:22 | XMS_ITS | Clinical Summary ---
Author Organization [facility] Address [address] [place] [address] Care Team Providers Care Airline Lounge Receptionist Name Role Phone Mike Jara MD Primary Care Provider [phone] Allergies Active Allergy Reactions Criticality Noted Date [...] complete this topic Procedures * Due to [facility] law, this organization might not be sharing negative HIV tests. Procedure Name Priority Date/Time Associated Diagnosis Comments PAP Routine 12/08/2023 10:29 AM EDT Cervical cancer screening from Last 3 Months or Most Recently Relevant to Health Maintenance Results * Due to [facility] law, this organization might not be sharing negative HIV tests. * Pap (12/08/2023 10:29 AM EDT) Specimen Adequacy Specimen processed and examined but unsatisfactory for evaluation of epithelial cell abnormalities because of scant cellularity [facility] 4 11:37 AM EDT [facility] Pathologist Cytology Interpretation Unsatisfactory for Evaluation. Please see Specimen Adequacy. [facility] 4 11:37 AM EDT [facility] at 1137 EDT [employer] Statement This Pap test could not be examined by the [facility], [employer], [place], [place], and required a full manual screening. This Pap test was examined in accordance with the [facility] Cytopathology Laboratory written policy, which incorporates all CLIA mandates. Screening guidelines can be found in Am J Clin Pathol 2012;137:516-542 . We endorse the practice guidelines developed by [facility] and published in the Journal Lower Genital Tract Disease 17(5):S1-S27 (2013). This report was delayed because the sample required reprocessing. [facility] 4 11:37 AM EDT [facility] Clinical History Screening [facility] 4 11:37 AM EDT [facility] Resulting Agency Case was signed out at [facility], Department of Pathology, [employer] 3 CLIA [id number] [facility]UAL 4 11:37 AM EDT [facility] Report Header Gynecologic Cytology Report Case: [id number] Authorizing Provider: Jade Yoder MD Collected: 12/08/2023 1029 Ordering Location: [facility] Received: 12/08/2023 133[address] [facility] First Screen: Ugo Lang Specimen: ThinPrep Pap Test, Cervix/Endocervi x 11:37 AM EDT [facility] Brushing Cervix uteri structure / Unknown Non-Blood Collection / Unknown 12/08/2023 10:29 AM EDT 12/08/2023 1:35 PM EDT us Jade Yoder MD LAB PATHOLOGY/CYTOLOGY ORDER DANIEL Final Result [facility] [place] [address], from Last 3 Months or Most Recently Relevant to Health Maintenance Care Teams Airline Lounge Receptionist Relationship Specialty Start Date End Date Mike Jara MD PCP - General 02/13/17
== END 2025-07-18 15:25 | disposition home or self-care (01) ==
LOC: HO.HWS 13:52
PROVIDERS: Visit Provider Advanced Practice Midwife
DX: Z01.419 Encounter for gynecological examination (general) (routine) without abnormal findings (principal); Z12.4 Encounter for screening for malignant neoplasm of cervix; Z12.31 Encounter for screening mammogram for malignant neoplasm of breast; Z78.9 Other specified health status
CPT/HCPCS: 99386; 99459